=== PATIENT | female | born 1940 | race Caucasian/White ===

== ENCOUNTER → 2016-11-10 | Outpatient (CLI) | payer OTHER, MEDICARE ==
[~2016-11-10] MED LIST: IOPAMIDOL (ISOVUE-300) 100 ML BTL IV ONE
== END ==
LOC: FIMAGING 11:05
PROVIDERS: ATTEND Internal Medicine Hematology & Oncology
DX: C85.90 Non-Hodgkin lymphoma, unspecified, unspecified site (principal); K62.3 Rectal prolapse; M41.9 Scoliosis, unspecified
CPT/HCPCS: 71260; 74177; Q9967

== ENCOUNTER → 2018-08-26 | Outpatient (CLI) | payer OTHER, MEDICARE ==
[~2018-08-26] MED LIST changes: +IOPAMIDOL (ISOVUE 370) 100 ML BTL IV ONE; -IOPAMIDOL (ISOVUE-300) 100 ML BTL IV ONE
== END ==
LOC: FIMAGING 12:40
DX: G20 Parkinson's disease (principal); G31.9 Degenerative disease of nervous system, unspecified; Z96.9 Presence of functional implant, unspecified
CPT/HCPCS: 70450; 70496; Q9967